=== PATIENT | male | born 1940 | race Caucasian/White ===

== ENCOUNTER → 2017-04-09 | Outpatient (CLI) | payer MEDICARE, OTHER ==
[~2017-04-09] MED LIST: Aspir-Low81 MG PO; CEPH500 PO; CLOP75 PO; Cardizem CD 12120 MG PO; Coumadin5 MG PO; DILT120 PO; EZET10 PO; EZET10-10 PO; LOSA50 PO; TAMS.4ER; XARELTO20 MG PO
== END | disposition home or self-care (01) ==
LOC: PLD 07:17
DX: C67.2 Malignant neoplasm of lateral wall of bladder (principal)
CPT/HCPCS: 88108

== ENCOUNTER 2017-05-10 07:40 | Emergency (ER) | payer MEDICARE, OTHER ==
[~2017-05-10] VITALS: Ht 167.6 cm; Wt 72.6 kg
[~2017-05-10 07:40] MED LIST changes: -CEPH500 PO
[2017-05-10 08:40] LABS: Calcium, Ionized (POC) 1.06 mmol/L (1.10-1.46); Chloride (POC) 103 mmol/L (98-108); Creatinine (POC) 0.8 mg/dL (0.8-1.3); Glucose (ISTAT POC) 112 mg/dL (70-99); Hemoglobin (POC) 16.7 g/dL (13.5-17.5); Sodium (POC) 138 mmol/L (135-148); Total CO2 (POC) 22 mmol/L (21-32)
[2017-05-10] MEDS ORDERED: CEPH500 PO (09:02)
== END 2017-05-10 09:08 | disposition home or self-care (01) ==
LOC: ER 07:40
PROVIDERS: Emergency Medicine
DX: R04.0 Epistaxis (principal); D68.9 Coagulation defect, unspecified; F17.210 Nicotine dependence, cigarettes, uncomplicated; Z79.899 Other long term (current) drug therapy; Z79.01 Long term (current) use of anticoagulants
CPT/HCPCS: 30903; 80047; 85014; 99283

== ENCOUNTER 2017-05-13 01:28 | Emergency (ER) | payer MEDICARE, OTHER ==
[~2017-05-13] VITALS: Ht 167.6 cm; Wt 72.6 kg
[~2017-05-13 01:28] MED LIST changes: +CEPH500 PO
[2017-05-13 02:45] LABS: Calcium, Ionized (POC) 1.11 mmol/L (1.10-1.46); Chloride (POC) 101 mmol/L (98-108); Creatinine (POC) 0.8 mg/dL (0.8-1.3); Glucose (ISTAT POC) 103 mg/dL (70-99); Hemoglobin (POC) 15.3 g/dL (13.5-17.5); Sodium (POC) 136 mmol/L (135-148); Total CO2 (POC) 22 mmol/L (21-32)
== END 2017-05-13 04:50 | disposition home or self-care (01) ==
LOC: ER 01:28
PROVIDERS: Emergency Medicine
DX: R04.0 Epistaxis (principal); F17.210 Nicotine dependence, cigarettes, uncomplicated; Z79.2 Long term (current) use of antibiotics; Z79.899 Other long term (current) drug therapy
CPT/HCPCS: 30901; 36415; 80047; 85014; 99283

== ENCOUNTER 2018-04-01 08:18 | Day surgery (SDC) | payer MEDICARE, OTHER ==
--- NOTE | 2018-04-01 10:48 | NUR ---
IS AT BEDSIDE WITH PT. PT WANTS COFFEE. BANDAID RT [facility]. PT AWARE SUPPOSED TO BE BED REST FOR TWO HOURS.
--- NOTE | 2018-04-01 11:08 | NUR ---
DTR ARRIVED AND IS NOW AT BEDSIDE WITH PT.
--- NOTE | 2018-04-01 11:36 | NUR ---
PT BP IS STARTING TO TREND DOWN. PT STATES THAT HE TAKES TWO BP MEDS AT HOME-LOSARTAN AND METOPROLOL. WILL CONTINUE TO MONITOR BP.
--- NOTE | 2018-04-01 12:08 | NUR ---
REPORT GIVEN TO RN (NNAMDI). SHE WILL ASSUME CARE OF PT.
== END 2018-04-01 22:43 | disposition home or self-care (01) ==
LOC: CT 08:18
DX: C67.1 Malignant neoplasm of dome of bladder (principal); K76.9 Liver disease, unspecified; C77.2 Secondary and unspecified malignant neoplasm of intra-abdominal lymph nodes; C78.7 Secondary malignant neoplasm of liver and intrahepatic bile duct; Z88.8 Allergy status to other drugs, medicaments and biological substances
CPT/HCPCS: 47000; 77012; 88173; 88307; 88341; 88342

== ENCOUNTER → 2018-06-04 | Outpatient (CLI) | payer MEDICARE, OTHER ==
[2018-06-04 14:35] LABS: BASOPHILS ABSOLUTE AUTO 0.04 K/mm3 (0.00-0.23); BASOPHILS PERCENT AUTO 1 % (0-2); EOSINOPHILS ABSOLUTE AUTO 0.05 K/mm3 (0.00-0.68); EOSINOPHILS PERCENT AUTO 1 % (0-6); Hematocrit 34.3 % (37.0-53.0); Hemoglobin 11.5 g/dL (13.5-17.5); IMMATURE GRAN ABSOLUTE AUTO 0.03 K/mm3 (0.00-0.10); IMMATURE GRAN PERCENT AUTO 1 % (0-1); LYMPHOCYTES ABSOLUTE AUTO 1.52 K/mm3 (0.84-5.20); LYMPHOCYTES PERCENT AUTO 31 % (21-46); MONOCYTES ABSOLUTE AUTO 0.51 K/mm3 (0.16-1.47); MONOCYTES PERCENT AUTO 10 % (4-13); Mean Corpuscular HGB 30.9 pg (26.0-34.0); Mean Corpuscular HGB Conc 33.5 g/dL (31.5-36.5); Mean Corpuscular Volume 92 fL (80-100); Mean Platelet Volume 10.5 fL (9.1-12.4); NEUTROPHILS ABSOLUTE AUTO 2.84 K/mm3 (1.96-9.15); NEUTROPHILS PERCENT AUTO 57 % (41-73); Platelet Count 160 K/mm3 (150-400); RDW Standard Deviation 49.7 fL (35.1-46.3); Red Blood Cell Count 3.72 M/mm3 (4.30-5.90); White Blood Cell Count 4.99 K/mm3 (4.00-11.30)
[2018-06-04 15:04] LABS: Alanine Aminotransfer (ALT/SGP 62 U/L (12-78); Albumin, Blood 2.8 g/dL (3.4-5.0); Albumin/Globulin Ratio 0.9 (0.8-1.8); Alk Phos 181 U/L (50-136); Anion Gap 6 mmol/L (6-16); Aspartate Aminotrans (AST/SGOT 44 U/L (12-37); Bilirubin, Total 0.4 mg/dL (0.1-1.0); Blood Urea Nitrogen 12 mg/dL (8-24); Bun/Creatinine Ratio 20.3 (12.0-20.0); CO2, Blood 25 mmol/L (21-32); Calcium, Blood 8.5 mg/dL (8.5-10.1); Chloride, Blood 102 mmol/L (98-108); Creatinine, Blood 0.59 mg/dL (0.60-1.20); Globulin, Blood 3.1 g/dL (2.2-4.0); Glomerular Filtration Rate >60 (60-); Glucose, Blood 93 mg/dL (70-99); Potassium, Blood 4.1 mmol/L (3.5-5.5); Sodium, Blood 133 mmol/L (136-145); Total Protein, Blood 5.9 g/dL (6.4-8.2)
== END | disposition home or self-care (01) ==
LOC: LAB SHORT 13:38 → LAB 13:38
PROVIDERS: Registered Nurse Oncology
DX: C67.1 Malignant neoplasm of dome of bladder (principal); C77.2 Secondary and unspecified malignant neoplasm of intra-abdominal lymph nodes; C78.7 Secondary malignant neoplasm of liver and intrahepatic bile duct
CPT/HCPCS: 80053; 85025

== ENCOUNTER 2018-09-27 07:30 | Emergency (ER) | payer MEDICARE, OTHER ==
[~2018-09-27] VITALS: Ht 167.6 cm; Wt 68.0 kg
[2018-09-27] MEDS ORDERED: ROSU10TA PO (07:44)
[2018-09-27] MEDS ORDERED: METOPROLOL SUCC25 MG PO (07:44)
== END 2018-09-27 10:25 | disposition home or self-care (01) ==
LOC: ER 07:30
DX: R04.0 Epistaxis (principal); D68.9 Coagulation defect, unspecified; I48.91 Unspecified atrial fibrillation; F17.210 Nicotine dependence, cigarettes, uncomplicated; Z79.899 Other long term (current) drug therapy
CPT/HCPCS: 99283

== ENCOUNTER 2021-12-26 08:04 | Day surgery (SDC) | payer MEDICARE, OTHER ==
[~2021-12-26] VITALS: Ht 167.6 cm; Wt 70.5 kg
[~2021-12-26 08:04] MED LIST changes: +ANORO ELLIPTA1 EACH INH; +DOCU100 PO; +LOSARTAN-HCTZ1 EAC6 PO; +METOPROLOL SUCC25 MG PO; +PRALUENT P75 MG/1 ML SQ; +ROSU10TA PO; +THERA-D2000 UNIT PO
--- NOTE | 2021-12-26 11:55 | NUR ---
PT TO RECOVERY ROOM VIA BED AFTER PROCEDURE, REPORT FROM KRISTIAN VELARDE. LEFT GROIN SITE SOFT AND NON-TENDER. TEGADERM AND ANASTASIIA PATCH TO SITE.
--- NOTE | 2021-12-26 12:09 | NUR ---
DR FRANCO AT BEDSIDE SPEAKING WITH PT AND DAUGHTER ABOUT PROCEDURE RESULTS AND PLAN FOR CARE
--- NOTE | 2021-12-26 14:59 | NUR ---
PT GIVEN DC INSTRUCTIONS AND VERBALIZED UNDERSTANDING. IV OUT. PT CHANGED INTO CLOTHES. GROIN SOFT AND NON-TENDER PER PT. NO BLEEDING NOTED. PT TAKEN TO [facility] VIA WC WHERE DAUGHTER AND WILL TAKE PT HOME.
== END 2021-12-26 14:45 | disposition home or self-care (01) ==
LOC: MHTC 08:04
DX: I70.213 Atherosclerosis of native arteries of extremities with intermittent claudication, bilateral legs (principal); Z72.0 Tobacco use; I48.0 Paroxysmal atrial fibrillation; I10 Essential (primary) hypertension; C22.8 Malignant neoplasm of liver, primary, unspecified as to type; F17.210 Nicotine dependence, cigarettes, uncomplicated; I65.23 Occlusion and stenosis of bilateral carotid arteries
CPT/HCPCS: 37221; 37222; 37224; 75625; 75716; 75774; 76937; 85347; 99152; 99153; C1725; C1760; C1769; C1874; C1887; C1894; C2623; J1644; J2250; J3010; J7030; J7040; Q9967

== ENCOUNTER 2022-01-09 08:58 | Day surgery (SDC) | payer MEDICARE, OTHER ==
[~2022-01-09] VITALS: Ht 167.6 cm; Wt 68.0 kg
--- NOTE | 2022-01-09 17:29 | NUR ---
GROIN SITE SOFT AND NON-TENDER PER PT. NO BLEEDING NOTED. PT GIVEN DC INSTRUCTIONS AND VERBALIZED UNDERSTANDING. IV OUT. PT CHNAGED INTO CLOTHES. PT TAKEN TO PA[RKING LOT VIA WC. TO GIVE PT RIDE HOME.
== END 2022-01-09 17:30 | disposition home or self-care (01) ==
LOC: MHTC 08:58
DX: I70.213 Atherosclerosis of native arteries of extremities with intermittent claudication, bilateral legs (principal); I65.23 Occlusion and stenosis of bilateral carotid arteries; I48.92 Unspecified atrial flutter; E78.5 Hyperlipidemia, unspecified; I10 Essential (primary) hypertension; I48.0 Paroxysmal atrial fibrillation; F17.210 Nicotine dependence, cigarettes, uncomplicated; Z88.8 Allergy status to other drugs, medicaments and biological substances; Z79.01 Long term (current) use of anticoagulants
CPT/HCPCS: 76937; 99152; 99153; C1725; C1753; C1760; C1769; C1887; C1894; C2623; J1644; J2250; J3010; J7030; J7040; Q9967

== ENCOUNTER 2022-08-05 08:49 | Emergency (ER) | payer MEDICARE, OTHER ==
[~2022-08-05] VITALS: Ht 177.8 cm; Wt 81.7 kg
[2022-08-05 09:42] VITALS: BP 161/60
== END 2022-08-05 09:46 | disposition home or self-care (01) ==
LOC: ER 08:49
DX: R04.0 Epistaxis (principal); I48.91 Unspecified atrial fibrillation; Z88.8 Allergy status to other drugs, medicaments and biological substances; Z79.01 Long term (current) use of anticoagulants
CPT/HCPCS: 99282

== ENCOUNTER 2023-09-11 21:36 | Emergency (ER) | payer MEDICARE, OTHER ==
[~2023-09-11] VITALS: Ht 170.2 cm; Wt 72.6 kg
[2023-09-11] MEDS ORDERED: TRAM50 PO (22:33)
[2023-09-11 23:07] LABS: BASOPHILS ABSOLUTE AUTO 0.09 K/mm3 (0.00-0.23); BASOPHILS PERCENT AUTO 1 % (0-2); EOSINOPHILS PERCENT AUTO 2 % (0-6); Hematocrit 45.7 % (37.0-53.0); IMMATURE GRAN ABSOLUTE AUTO 0.09 K/mm3 (0.00-0.10); IMMATURE GRAN PERCENT AUTO 1 % (0-1); LYMPHOCYTES ABSOLUTE AUTO 1.83 K/mm3 (0.84-5.20); LYMPHOCYTES PERCENT AUTO 16 % (21-46); MONOCYTES ABSOLUTE AUTO 0.99 K/mm3 (0.16-1.47); MONOCYTES PERCENT AUTO 9 % (4-13); Mean Corpuscular HGB 31.8 pg (26.0-34.0); Mean Corpuscular Volume 91 fL (80-100); Mean Platelet Volume 9.8 fL (9.1-12.4); NEUTROPHILS ABSOLUTE AUTO 8.21 K/mm3 (1.96-9.15); NEUTROPHILS PERCENT AUTO 72 % (41-73); Platelet Count 297 K/mm3 (150-400); RDW Coefficient Variation 13.9 % (11.7-14.2); RDW Standard Deviation 46.7 fL (35.1-46.3); Red Blood Cell Count 5.03 M/mm3 (4.30-5.90); White Blood Cell Count 11.41 K/mm3 (4.00-11.30)
[2023-09-11 23:29] LABS: Albumin, Blood 3.2 g/dL (3.4-5.0); Albumin/Globulin Ratio 0.9 (0.8-1.8); Bilirubin, Total 0.5 mg/dL (0.1-1.0); Bun/Creatinine Ratio 15.7 (12.0-20.0); Calcium, Blood 8.2 mg/dL (8.5-10.1); Creatinine, Blood 0.7 mg/dL (0.60-1.20); Globulin, Blood 3.7 g/dL (2.2-4.0); Potassium, Blood 4.4 mmol/L (3.5-5.5); Total Protein, Blood 6.9 g/dL (6.4-8.2)
[2023-09-12] MEDS ORDERED: TRAM50 PO (00:05)
[2023-09-12 00:20] VITALS: BP 157/72
== END 2023-09-12 00:20 | disposition home or self-care (01) ==
LOC: ER 21:36
PROVIDERS: Physician Assistant
DX: R07.81 Pleurodynia (principal); I10 Essential (primary) hypertension; E11.9 Type 2 diabetes mellitus without complications; F17.210 Nicotine dependence, cigarettes, uncomplicated; Z88.8 Allergy status to other drugs, medicaments and biological substances; Z79.01 Long term (current) use of anticoagulants; Z79.899 Other long term (current) drug therapy
CPT/HCPCS: 80053; 85025; 99283

== ENCOUNTER → 2025-02-16 | Outpatient (CLI) | payer MEDICARE, OTHER ==
[~2025-02-16] MED LIST changes: +TRAM50 PO
== END | disposition home or self-care (01) ==
LOC: LAB 18:18 → LAB SHORT 18:18
DX: L08.9 Local infection of the skin and subcutaneous tissue, unspecified (principal)
CPT/HCPCS: 87070; 87205